=== PATIENT | female | born 2000 | race African-American/Black ===

== ENCOUNTER 2018-06-17 14:04 | Emergency (ER) | payer MEDICAID ==
[~2018-06-17] VITALS: Ht 162.6 cm; Wt 113.6 kg
[2018-06-17 14:12] VITALS: Ht 162.6 cm; Wt 113.6 kg
[2018-06-17 16:40] LABS: HEMATOCRIT 38.7 % (36.0-48.0); HEMOGLOBIN 12.6 g/dL (12-16); MCH 26.3 pg (26.0-34.0); MCHC 32.6 g/dL (31.0-37.0); MCV 80.8 fL (80.0-100.0); MEAN PLATELET VOLUME 11.2 fL (7.4-10.4); PLATELET COUNT 249 10x3/uL (130-400); RBC 4.79 10x6/uL (4.00-5.40); RDW 12.8 % (11.5-14.5); WBC 7.5 10x3/uL (4.8-10.8)
[2018-06-17 16:48] LABS: BASOPHILS 0.1 % (0-2); EOSINOPHILS 0.8 % (0-7); IMMATURE GRANULOCYTES 0.1 % (0-5); LYMPHOCYTES 25.5 % (15-50); MONOCYTES 9.3 % (2-11); NEUTROPHILS 64.2 % (40-80)
[2018-06-17 16:48] LABS: APPEARANCE CLEAR (CLEAR); COLOR YELLOW (YELLOW); HCG URINE NEGATIVE (NEGATIVE)
[2018-06-17 16:49] LABS: BILIRUBIN NEGATIVE (NEGATIVE); GLUCOSE NEGATIVE (NEGATIVE); KETONE NEGATIVE (NEGATIVE); NITRITE NEGATIVE (NEGATIVE); PROTEIN TRACE mg/dL (NEGATIVE)
[2018-06-17 16:52] LABS: BACTERIA FEW /hpf (NONE SEEN); EPITHELIAL CELLS RARE /hpf (0-5); MUCUS <1+ /lpf (NONE SEEN); RED CELLS - URINE OCC /hpf (0-5)
[2018-06-17 17:01] LABS: ALBUMIN 3.5 g/dL (3.4-5.0); ALKALINE PHOSPHATASE 78 U/L (46-116); ALT (SGPT) 13 U/L (10-68); BILIRUBIN - TOTAL 0.38 mg/dL (0.2-1.3); CALC OSMOLALITY 281 mosm/kg (275-300); CALCIUM 8.3 mg/dL (8.5-10.1); CARBON DIOXIDE 26.7 mmol/L (21.0-32.0); CHLORIDE - SERUM 106 mmol/L (98-107); CREATININE - SERUM 0.9 mg/dL (0.6-1.3); GLUCOSE 81 mg/dL (74-106); POTASSIUM - SERUM 3.3 mmol/L (3.5-5.1); PROTEIN - SERUM 8.2 g/dL (6.4-8.2); SODIUM 143 mmol/L (136-145); UREA NITROGEN 8 mg/dL (7-18); eGFR NON AFRICAN AMERICAN 85 mL/min (90-120)
[2018-06-17 17:03] LABS: CREATINE KINASE 110 UL (21-215); TROPONIN-I < 0.017 ng/mL (0.000-0.060)
[2018-06-17] MEDS ORDERED: K-TAB10 MEQ PO (18:38)
[2018-06-17 18:49] VITALS: BP 125/72
== END 2018-06-17 18:50 | disposition home or self-care (01) ==
LOC: D.ER 14:04
PROVIDERS: Emergency Medicine
DX: R51 Headache (principal); E87.6 Hypokalemia; R42 Dizziness and giddiness; R55 Syncope and collapse

== ENCOUNTER 2019-01-22 15:26 | Emergency (ER) | payer MEDICAID ==
[~2019-01-22] VITALS: Ht 162.6 cm; Wt 117.4 kg
[~2019-01-22 15:26] MED LIST: K-TAB10 MEQ PO
[2019-01-22 15:53] VITALS: Ht 162.6 cm; Wt 117.4 kg
[2019-01-22 16:58] VITALS: BP 110/65
== END 2019-01-22 16:58 | disposition home or self-care (01) ==
LOC: D.ER 15:26
DX: R51 Headache (principal); V49.9XXA Car occupant (driver) (passenger) injured in unspecified traffic accident, initial encounter

== ENCOUNTER 2019-12-30 05:08 | Emergency (ER) | payer SELFPAY ==
[~2019-12-30] VITALS: Ht 162.6 cm; Wt 118.2 kg
[2019-12-30 05:13] VITALS: Ht 162.6 cm; Wt 118.2 kg
[2019-12-30] MEDS ORDERED: ADIPEX-P37.5 MG PO (05:16)
[2019-12-30 06:19] LABS: BASOPHILS 0.1 % (0-2); EOSINOPHILS 0.1 % (0-7); HEMATOCRIT 37.2 % (36.0-48.0); HEMOGLOBIN 11.8 g/dL (12-16); IMMATURE GRANULOCYTES 0.3 % (0-5); LYMPHOCYTES 14.5 % (15-50); MCH 25.9 pg (26.0-34.0); MCHC 31.7 g/dL (31.0-37.0); MCV 81.6 fL (80.0-100.0); MEAN PLATELET VOLUME 11.1 fL (7.4-10.4); MONOCYTES 9.2 % (2-11); NEUTROPHILS 75.8 % (40-80); PLATELET COUNT 255 10x3/uL (130-400); RBC 4.56 10x6/uL (4.00-5.40); RDW 12.7 % (11.5-14.5); WBC 13.1 10x3/uL (4.8-10.8)
[2019-12-30 06:30] LABS: ALBUMIN 3.4 g/dL (3.4-5.0); ANION GAP 11.5 mmol/L (8-16); BILIRUBIN - TOTAL 1.1 mg/dL (0.2-1.3); CALCIUM 8.5 mg/dL (8.5-10.1); CARBON DIOXIDE 28.5 mmol/L (21.0-32.0); PROTEIN - SERUM 8.4 g/dL (6.4-8.2)
[2019-12-30 06:35] LABS: UDS - AMPHET NEGATIVE QUAL (NEGATIVE); UDS - BARB NEGATIVE QUAL (NEGATIVE); UDS - BENZO NEGATIVE QUAL (NEGATIVE); UDS - COCAINE NEGATIVE QUAL (NEGATIVE); UDS - OPIATE NEGATIVE QUAL (NEGATIVE); UDS - PCP NEGATIVE QUAL (NEGATIVE); UDS - THC NEGATIVE QUAL (NEGATIVE)
[2019-12-30 06:48] LABS: BACTERIA MANY HPF (NONE SEEN); BILIRUBIN NEGATIVE (NEGATIVE); EPITHELIAL CELLS OCC /hpf (0-5); KETONE MODERATE mg/dL (NEGATIVE); NITRITE POSITIVE (NEGATIVE); UROBILINOGEN NORMAL mg/dL (< 2); WHITE CELLS - URINE >50 HPF (0-4)
[2019-12-30 06:50] LABS: HCG URINE NEGATIVE (NEGATIVE)
[2019-12-30] MEDS ORDERED: OMNICEF300 MG PO (06:58)
[2019-12-30 07:11] VITALS: BP 102/60
== END 2019-12-30 07:14 | disposition home or self-care (01) ==
LOC: D.ER 05:08
PROVIDERS: Family Medicine
DX: N39.0 Urinary tract infection, site not specified (principal); E87.6 Hypokalemia

== ENCOUNTER 2019-12-30 18:38 | Emergency (ER) | payer SELFPAY ==
[~2019-12-30] VITALS: Ht 162.6 cm; Wt 118.2 kg
[~2019-12-30 18:38] MED LIST changes: +ADIPEX-P37.5 MG PO; +OMNICEF300 MG PO
[2019-12-30 18:46] VITALS: Ht 162.6 cm; Wt 118.2 kg
[2019-12-30 19:42] LABS: BASOPHILS 0.2 % (0-2); EOSINOPHILS 0 % (0-7); HEMATOCRIT 37.4 % (36.0-48.0); IMMATURE GRANULOCYTES 0.4 % (0-5); LYMPHOCYTES 17.2 % (15-50); MCH 26.2 pg (26.0-34.0); MCHC 32.1 g/dL (31.0-37.0); MCV 81.7 fL (80.0-100.0); MEAN PLATELET VOLUME 10.4 fL (7.4-10.4); MONOCYTES 10.1 % (2-11); NEUTROPHILS 72.1 % (40-80); PLATELET COUNT 205 10x3/uL (130-400); RBC 4.58 10x6/uL (4.00-5.40); RDW 12.6 % (11.5-14.5); WBC 14.5 10x3/uL (4.8-10.8)
[2019-12-30 20:14] LABS: INR 1.22 (0.85-1.17); PROTIME 15.4 SECONDS (11.6-15.0)
[2019-12-30 20:15] LABS: APTT 39.1 SECONDS (22.8-39.4); CALC OSMOLALITY 261 mosm/kg (275-300); CALCIUM 8.8 mg/dL (8.5-10.1); CARBON DIOXIDE 27.6 mmol/L (21.0-32.0); CHLORIDE - SERUM 97 mmol/L (98-107); CREATININE - SERUM 0.9 mg/dL (0.6-1.3); POTASSIUM - SERUM 3.1 mmol/L (3.5-5.1); SODIUM 132 mmol/L (136-145); UREA NITROGEN 5 mg/dL (7-18); eGFR NON AFRICAN AMERICAN 84 mL/min (90-120)
[2019-12-30 20:18] LABS: GLUCOSE 98 mg/dL (74-106)
[2019-12-30 20:33] LABS: ALBUMIN 3.5 g/dL (3.4-5.0); ALKALINE PHOSPHATASE 57 U/L (30-120); ALT (SGPT) 22 U/L (10-68); BILIRUBIN - TOTAL 1.54 mg/dL (0.2-1.3); CKMB 0.3 U/L (0.0-3.6); CREATINE KINASE 87 UL (21-215); PRO BNP 11 pg/mL (0-125); PROTEIN - SERUM 8.7 g/dL (6.4-8.2)
[2019-12-30 20:56] LABS: TROPONIN-I < 0.017 ng/mL (0.000-0.060)
[2019-12-30 21:53] VITALS: BP 109/70
== END 2019-12-30 21:50 | disposition home or self-care (01) ==
LOC: D.ER 18:38
PROVIDERS: Family Medicine
DX: R06.02 Shortness of breath (principal); U07.1 COVID-19; E66.01 Morbid (severe) obesity due to excess calories

== ENCOUNTER 2020-01-02 17:32 | Emergency (ER) | payer SELFPAY ==
[~2020-01-02] VITALS: Ht 162.6 cm; Wt 118.2 kg
[2020-01-02 17:40] VITALS: Ht 162.6 cm; Wt 118.2 kg
[2020-01-02 18:24] LABS: BASOPHILS 0.2 % (0-2); EOSINOPHILS 0.3 % (0-7); HEMATOCRIT 40.8 % (36.0-48.0); HEMOGLOBIN 13.2 g/dL (12-16); LYMPHOCYTES 37.4 % (15-50); MCH 26.2 pg (26.0-34.0); MCHC 32.4 g/dL (31.0-37.0); MCV 81.1 fL (80.0-100.0); MEAN PLATELET VOLUME 10.8 fL (7.4-10.4); MONOCYTES 9.7 % (2-11); NEUTROPHILS 51.4 % (40-80); RBC 5.03 10x6/uL (4.00-5.40); RDW 12.5 % (11.5-14.5); WBC 9.2 10x3/uL (4.8-10.8)
[2020-01-02 18:26] LABS: PLATELET COUNT 328 10x3/uL (130-400)
[2020-01-02 18:30] LABS: CALC OSMOLALITY 273 mosm/kg (275-300); CALCIUM 9.7 mg/dL (8.5-10.1); CARBON DIOXIDE 30.7 mmol/L (21.0-32.0); CHLORIDE - SERUM 101 mmol/L (98-107); CREATININE - SERUM 0.9 mg/dL (0.6-1.3); GLUCOSE 109 mg/dL (74-106); POTASSIUM - SERUM 3.3 mmol/L (3.5-5.1); SODIUM 137 mmol/L (136-145); UREA NITROGEN 9 mg/dL (7-18); eGFR NON AFRICAN AMERICAN 84 mL/min (90-120)
[2020-01-02 18:34] LABS: APTT 28.3 SECONDS (22.8-39.4); INR 1.06 (0.85-1.17); PROTIME 13.7 SECONDS (11.6-15.0)
[2020-01-02 18:36] LABS: D-DIMER-QUANTITATIVE 0.8 ug/mLFEU (0.20-0.54)
[2020-01-02 18:47] LABS: ALBUMIN 3.6 g/dL (3.4-5.0); ALKALINE PHOSPHATASE 63 U/L (30-120); ALT (SGPT) 22 U/L (10-68); BILIRUBIN - TOTAL 0.44 mg/dL (0.2-1.3); CKMB 0.2 U/L (0.0-3.6); CREATINE KINASE 32 UL (21-215); PRO BNP 37 pg/mL (0-125); PROTEIN - SERUM 8.6 g/dL (6.4-8.2); TROPONIN-I < 0.017 ng/mL (0.000-0.060)
[2020-01-02] MEDS ORDERED: DECADRON4 MG PO (19:55)
[2020-01-02] MEDS ORDERED: ZYRTEC10 MG PO (19:56)
[2020-01-02] MEDS ORDERED: PROAIR HFA8.5 G1 INH (19:56)
[2020-01-02 20:58] VITALS: BP 103/62
== END 2020-01-02 20:44 | disposition home or self-care (01) ==
LOC: D.ER 17:32
PROVIDERS: Family Medicine
DX: U07.1 COVID-19 (principal); E87.6 Hypokalemia; E87.3 Alkalosis; F41.0 Panic disorder [episodic paroxysmal anxiety]

== ENCOUNTER 2020-08-19 10:43 | Emergency (ER) | payer OTHER ==
[~2020-08-19] VITALS: Ht 162.6 cm; Wt 103.2 kg
[~2020-08-19 10:43] MED LIST changes: +DECADRON4 MG PO; +PROAIR HFA8.5 G1 INH; +ZYRTEC10 MG PO
[2020-08-19 10:47] VITALS: BP 107/71; Ht 162.6 cm; Wt 103.2 kg
[2020-08-19] MEDS ORDERED: BUTALB-APAP-CA1 EACH PO (11:42)
== END 2020-08-19 11:57 | disposition home or self-care (01) ==
LOC: D.ER 10:43
DX: G44.309 Post-traumatic headache, unspecified, not intractable (principal); F07.81 Postconcussional syndrome